=== PATIENT | male | born 1995 | race Hispanic/Latino ===

== ENCOUNTER 2016-12-13 16:46 | Emergency (ER) | payer SELFPAY ==
[~2016-12-13] VITALS: Ht 167.6 cm; Wt 81.4 kg
[~2016-12-13 16:46] MED LIST: IBUP-1827 PO; METH-313 PO
[2016-12-13 17:00] VITALS: BP 128/77; PULSE 72; RESP 20; O2SAT 99
--- NOTE | 2016-12-13 17:47 | DRSVH ---
PROCEDURE: X-RAY RIGHT SHOULDER, 4 VIEWS INDICATIONS: fall, right shoulder pain TECHNIQUE: 4 views of the shoulder were acquired. COMPARISON: None. FINDINGS: Bones: No fractures or dislocations. No suspicious bony lesions. Visualized ribs appear intact. Soft tissues: No suspicious soft tissue calcifications. IMPRESSION: No acute fracture. No osseous lesion. If clinical suspicion and/or symptoms persist, fur ther assessment with repeat plainfilms, or advanced imaging (e.g., CT, MRI, or bone scan) may be help ful for further assessment. Dictated by: Edwardo Horowitz M.D. on 12/13/2016 at 17:44 Approved by: Edwardo Horowitz M.D. on 12/13/2016 at 17:45
--- NOTE | 2016-12-13 18:33 | ED.REPORT ---
HPI-Extremity Problem Upper Date of Service Dec 13, 2016 ED Provider: Doc,Ed MD History of Present Illness: 21-year-old male here for right shoulder pain. Earlier today he was playing soccer and landed flat on his back hurting his right shoulder. He did not feel a dislocation. He felt and heard a pop. He did get up and continue playing the game for the next 10 minutes until it was over. Otherwise healthy. No prior injuries. Nursing Notes Stated Complaint: RIGHT SHOULDER POPPED Chief Complaint: Extremity Trauma Nursing Notes Reviewed: Yes Allergies: Coded Allergies: No Known Allergies (Unverified Allergy, Unknown, 12/13/16) Scheduled PRN Ibuprofen (Ibuprofen) 600 Mg Tablet 600 MG PO QID PRN PRN For Pain Methocarbamol (Robaxin-750) 750 Mg Tablet 1-2 TAB PO QID PRN PRN For Pain General Time Seen by MD: 18:33 Chief Complaint Shoulder injury right Hx Obtained From: Patient Arrived By: Walk-in Onset Occurred: 5 - 8 hours ago Symptom Duration: Since onset Caused by: Fall on ground Location: : Shoulder right Severity: Current: Moderate Severity: Maximum: Moderate Pertinent Negative: Pt denies other symptoms Exacerbated by: Range of motion Relieved by: Rest Recent Healthcare: No recent doctor visit Similar Sx Previous: No Past Medical History Past Medical History Notes: Denies Past Medical History None reported. Past Surgical History None reported. Smoking History Never Smoker Social History Alcohol Use: "Social" Drug Use: Denies drug use Other Social History: Local resident Ambulatory Status Independent Review of Systems Review of Systems Note: Right shoulder pain Musculoskeletal: Reports: Extremity pain Physical Exam Initial Vital Signs Vital Signs (First) Date Time Temp Pulse Resp B/P Pulse Ox O2 Delivery O2 Flow Rate FiO2 12/13/16 17:00 37.1 72 20 128/77 99 Room Air Initial VS: Reviewed, Vital signs normal General/Constitutional: Awake, Alert, Well appearing Neck: Supple, Full range of motion, No swelling, Non-tender Respiratory / Chest: Breath sounds NL, Breath sounds = bilat, No respiratory distress, No rales, No rhonchi, No wheezing Cardiovascular: Heart rate NL, Regular rhythm, Heart sounds NL, Peripheral circulation NL Upper Extremity / MS: Atraumatic, Inspection NL, Full range of motion, No swelling, No erythema, No deformity, Neurologic intact, Vascular intact, No ligamentous injury Right Shoulder: Positive: Tenderness present... (Moderate), Negative: Ecchymosis present, Erythema present, ROM reduced, Warmth present Distal clavicle tender moderate bony shoulder tenderness. X-ray normal Interpretation & Diagnostics Interpretation & Diagnostics: Patient Name: VIKTOR ADAMS I MR#: [id number] [place] [facility] [place] Phys: HENRRY PELLETIER MD Date of Service: 12/13/16 1703 PROCEDURE: X-RAY RIGHT SHOULDER, 4 VIEWS INDICATIONS: fall, right shoulder pain TECHNIQUE: 4 views of the shoulder were acquired. COMPARISON: None. FINDINGS: Bones: No fractures or dislocations. No suspicious bony lesions. Visualized ribs appear intact. Soft tissues: No suspicious soft tissue calcifications. IMPRESSION: No acute fracture. No osseous lesion. If clinical suspicion and/or symptoms persist, further assessment with repeat plainfilms, or advanced imaging (e.g., CT, MRI, or bone scan) may be helpful for further assessment. Re-Eval/Medical Decision Med Decision/Clinical Course Patient is full range of motion of his right shoulder. Moderate bony tenderness x-ray normal. Discussed follow-up. Discharge & Departure Impression: Primary Impression: Right shoulder pain Chronicity: acute Qualified Code: M25.511 - Pain in right shoulder Disposition: Home Discharge Condition All VS Reviewed: Yes Condition: Stable Patient Instructions: Shoulder Sprain (ED) Additional Instructions: Use ibuprofen and ice for pain as needed. Wear sling for 2 days and then just as needed. Try to keep your arm out of the sling as much as you can throughout the day and wear it only when your arm starts to ache. No heavy lifting until pain significantly subsides. Follow-up in 7-10 days if no improvement in pain. Return if pain severe or you have limitations. Referrals: Estelle Montiel (PCP) [facility] Provider for APC: Guero Perez Linnea K ARNP Dec 13, 2016 18:33
[2016-12-13 19:12] VITALS: BP 122/71; PULSE 72; RESP 16; O2SAT 99
== END 2016-12-13 19:12 | disposition home or self-care (01) ==
LOC: SED 16:46
DX: M25.511 Pain in right shoulder (principal); W18.39XA Other fall on same level, initial encounter; Y93.66 Activity, soccer; Y92.019 Unspecified place in single-family (private) house as the place of occurrence of the external cause; Y99.8 Other external cause status